=== PATIENT | female | born 1975 | race Caucasian/White ===

== ENCOUNTER 2019-11-17 08:19 | Emergency (ER) | payer BC ==
[~2019-11-17] VITALS: Ht 152.4 cm; Wt 73.6 kg
--- NOTE | 2019-11-17 09:45 | NUR ---
PT HERE WITH C/O LOWER ABDOMINAL CRMAPING AND SPOTTING X 2 DAYS. PT STATES SHE HAS A MIRENA IUD AND NEVER EXPERIENCING CRAMPING OR BLEEDING. PT AAO X 4, NAD, ROOM AIR, DRESSED IN GOWN AND ON MONITOR. CALL LIGHT WITHIN REACH AND SIDERAIL X [address] MD AT BEDSIDE FOR ASSESSMENJT, NEW ORDERS RECIEVED AND IMPLEMENTED.
--- NOTE | 2019-11-17 10:01 | NUR ---
PT TO US.
[2019-11-17 10:05] LABS: HCG UR SG 1.025 (1.003-1.030); MICROSCOPIC AUTO
[2019-11-17 10:06] LABS: CULTURE INDICATED? NO
[2019-11-17 10:11] LABS: BASOPHILS # (AUTO) 0.02 x10^3/uL (0-0.1); BASOPHILS % (AUTO) 0 % (0-1); EOSINOPHILS # (AUTO) 0.04 x10^3/uL (0-0.4); EOSINOPHILS % (AUTO) 1 % (1-7); LYMPHOCYTES # (AUTO) 1.45 x10^3/uL (1-3.4); LYMPHOCYTES % (AUTO) 20 % (22-44); MD NO; MEAN CORPUSCULAR HEMOGLOBIN 30.4 pg (27.0-34.8); MEAN CORPUSCULAR HGB CONC 33.4 g/dL (32.4-35.8); MEAN CORPUSCULAR VOLUME 91.1 fL (80-100); MEAN PLATELET VOLUME 8.1 fL (7.4-10.4); MONOCYTES # (AUTO) 0.45 x10^3/uL (0.2-0.8); MONOCYTES % (AUTO) 6 % (2-9); NEUTROPHILS % (AUTO) 73 % (42-75); PLATELET COUNT 278 x10^3/uL (130-400); RED BLOOD COUNT 4.64 x10^6/uL (3.82-5.3); RED CELL DISTRIBUTION WIDTH 14.6 % (9.6-15.2)
[2019-11-17 10:20] LABS: ALBUMIN 3.7 g/dL (3.4-5.0); ANION GAP 5 mmol/L (5-15); CALCIUM 8.5 mg/dL (8.5-10.1); CHLORIDE 114 mmol/L (98-107)
[2019-11-17 10:23] LABS: ALANINE AMINOTRANSFERASE 46 U/L (12-78); ALKALINE PHOSPHATASE 70 U/L (45-117); BILIRUBIN,TOTAL 0.2 mg/dL (0.2-1.0); CREATININE 0.61 mg/dL (0.55-1.02)
--- NOTE | 2019-11-17 10:36 | NUR ---
TOWER HAND PAGED @[phone]
--- NOTE | 2019-11-17 10:52 | NUR ---
AT BEDSIDE FOR REASSESSMENT.
--- NOTE | 2019-11-17 11:42 | NUR ---
ALL RESULTS BACK AT THIS TIME, CHART UP FOR RECHECK.
[2019-11-17 12:16] VITALS: BP 95/42
--- NOTE | 2019-11-17 12:37 | NUR ---
DR. 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
[2019-11-17] MEDS ORDERED: IBUPROFEN 200 MG TABLET ONE (12:46)
--- NOTE | 2019-11-17 12:50 | NUR ---
PT MEDICATED PER ORDERS.
[2019-11-17] MEDS ORDERED: IBUPROFEN 200 MG TABLET PO ONE (13:00)
--- NOTE | 2019-11-17 13:15 | NUR ---
Patient given discharge instructions and they have confirmed that they understand the instructions. Patient ambulatory with steady gait.
== END 2019-11-17 13:16 | disposition home or self-care (01) ==
LOC: ED 12:22
DX: O26.891 Other specified pregnancy related conditions, first trimester (principal); R10.84 Generalized abdominal pain; Z3A.01 Less than 8 weeks gestation of pregnancy
CPT/HCPCS: 36415; 76830; 80053; 81001; 81025; 84702; 85025; 86901; 99284